=== PATIENT | female | born 1975 | race Caucasian/White ===

== ENCOUNTER 2023-05-12 21:24 | Emergency (ER) | payer OTHER ==
[~2023-05-12] VITALS: Ht 157.5 cm; Wt 47.6 kg
[2023-05-12 22:17] VITALS: BP 124/67; TEMP 98.1; O2SAT 96
[2023-05-12] MEDS ORDERED: ONDANSETRON HCL/PF 4 MG/2 ML VIAL IV ONE (23:00)
[2023-05-12] MEDS ORDERED: HYDROMORPHONE 1 MG/1 ML DISP.SYRIN IV ONE (23:00)
[2023-05-12] MEDS ORDERED: ASPIRIN 81 MG TAB.CHEW PO ONE (23:00)
--- NOTE | 2023-05-12 23:00 | NUR ---
EMT AT PT'S BEDSIDE
[2023-05-12 23:07] LABS: BILIRUBIN,URINE NEGATIVE (NEGATIVE); COLOR,URINE YELLOW (YELLOW); LEUKOCYTE ESTERASE ,URINE TRACE (NEGATIVE); NITRITE, URINE NEGATIVE (NEGATIVE); PROTEIN,URINE NEGATIVE (NEGATIVE); UGLUCOSE NEGATIVE (NEGATIVE); UROBILINOGEN,URINE 0.2 EU/dL (0.2)
--- NOTE | 2023-05-12 23:10 | NUR ---
SECURED IV ACCESS ON R AC#20; PATENT AND FLUSHING WELL.
[2023-05-12] MEDS ORDERED: ONDANSETRON HCL/PF 4 MG/2 ML VIAL ONE (23:16)
[2023-05-12] MEDS ORDERED: ASPIRIN 81 MG TAB.CHEW ONE (23:17)
[2023-05-12] MEDS ORDERED: HYDROMORPHONE 1 MG/1 ML DISP.SYRIN ONE (23:17)
[2023-05-12 23:21] LABS: BACTERIA,URINE None seen /HPF (None Seen); RBC,URINE 0-2 /HPF (0-2); SQUAMOUS EPITHELIAL CELL,UR None Seen /HPF (None Seen)
[2023-05-12 23:28] LABS: BASOPHILS # (AUTO) 0.1 K/uL (0.0-0.2); BASOPHILS % (AUTO) 1.3 % (0.0-2.0); EOSINOPHILS % (AUTO) 7.9 % (0.0-6.0); HEMATOCRIT 38 % (33-45); HEMOGLOBIN 12.4 g/dL (11.5-14.8); LYMPHOCYTES # (AUTO) 2.6 K/uL (0.8-4.8); LYMPHOCYTES % (AUTO) 34.6 % (20.0-44.0); MEAN CORPUSCULAR HGB CONC 33 g/dl (31.0-36.0); MEAN CORPUSCULAR VOLUME 85 fL (82-100); MONOCYTES # (AUTO) 0.5 K/uL (0.1-1.30); MONOCYTES % (AUTO) 7.1 % (2.0-12.0); NEUTROPHILS # (AUTO) 3.7 K/uL (1.8-8.9); NEUTROPHILS % (AUTO) 49.1 % (43.0-81.0); PLATELET COUNT (AUTO) 215 K/uL (150-450); WHITE BLOOD COUNT (AUTO) 7.4 K/uL (4.3-11.0)
[2023-05-12 23:35] LABS: CALCIUM, SERUM 9.2 mg/dL (8.5-10.1); CARBON DIOXIDE 26 mmol/L (21-32); CHLORIDE 103 mmol/L (98-107); CREATININE 0.6 mg/dL (0.6-1.3); GLUCOSE 88 mg/dL (74-106); POTASSIUM 4.1 mmol/L (3.5-5.1); SODIUM SERUM 137 mmol/L (136-145); UREA NITROGEN, BLOOD 13 mg/dL (7-18)
[2023-05-12 23:40] LABS: ALANINE AMINOTRANSFERASE 22 U/L (12-78); ALBUMIN 3.5 g/dL (3.4-5.0); ALKALINE PHOSPHATASE 58 U/L (46-116); ASPARTATE AMINOTRANSFERASE 19 U/L (15-37); BILIRUBIN,DIRECT 0.1 mg/dL (0.0-0.2); BILIRUBIN,TOTAL 0.4 mg/dL (0.2-1.0); TOTAL PROTEIN, SERUM 7.4 g/dL (6.4-8.2)
[2023-05-12] MEDS ORDERED: IV NS 0.9% 250 ML IV ONE (23:40)
[2023-05-12] MEDS ORDERED: IOHEXOL-300 100 ML VIAL IV ONE (23:40)
--- NOTE | 2023-05-13 00:03 | NUR ---
PT TAKEN TO CT VIA W/C
--- NOTE | 2023-05-13 02:11 | NUR ---
Dominique monte in [facility] - 05/13/23 at 0211 by VERENA US TECH AT PT'S BEDSIDE
--- NOTE | 2023-05-13 03:48 | NUR ---
Patient does not wish to proceed with medical care recommended by Dr. Roman. Patient given information related to possible complications, up to and including , which could occur as a result of leaving the hospital at this time. Patient verbalizes understanding of risks involved due to leaving against medical advice. Patient has signed AMA form. IV removed. Catheter intact and site benign. Pressure and 4x4 applied to site. No bleeding noted.
== END 2023-05-13 04:00 | disposition left against medical advice (07) ==
LOC: ER 22:24
DX: R10.9 Unspecified abdominal pain (principal); Z60.2 Problems related to living alone
CPT/HCPCS: 99285; 74177; 96374; 71045; 96375; 93005; 85025; 80048; 80076; 84703; 81001; 36415 ×2; 84484 ×2; J2405; J7050; Q9967; J1170